=== PATIENT | male | born 1945 | race Caucasian/White ===

== ENCOUNTER 2022-10-27 08:54 | Inpatient (IN) ==
--- NOTE | 2022-10-22 15:25 | Anesthesiology Consultation ---
Date of Service October 22, 2022 Assessment & Plan (1) Encounter for pre-operative examination: Chart Review Chart Review: Acceptable Risk for Surgery and Patient NOT seen in Pre Admission Testing -COVID screening: Per PAT nursing assessment on 10/22/22. No known COVID-19 positive contacts or current COVID-19 related symptoms. Travel screen negative. Patient vaccinated for Covid. At surgeon discretion if preop Covid testing being done. History Surgery Operation Date: 10/27/22 10:20 Proposed Procedures p Transurethral Resection Prostate - Angel Wallace MD Height/Weight Height: 5 ft 8 in Weight: 65.771 kg Allergies Allergy/AdvReac Type Severity Reaction Status Date / Time No Known Drug Allergies Allergy Verified 10/22/22 13:47 Medications Home Medications Medication Instructions Recorded Confirmed Last Taken tamsulosin 0.4 mg capsule 0.4 mg PO QAM 09/07/22 10/22/22 Unknown losartan 25 mg tablet 25 mg PO BID 09/28/22 10/22/22 Unknown multivitamin 1 tab PO QAM 10/22/22 10/22/22 Unknown Past Medical History Medical History Acute kidney injury Secondary to obstructive uropathy per nephro records Anemia BPH (benign prostatic hyperplasia) CKD (chronic kidney disease) Hypertension Past Family History Family History Father Colorectal cancer Diabetes Past Surgical History Surgical History H/O oral surgery TOOTH EXTRACTIONS History of colonoscopy WITH POLYPECTOMY History of tonsillectomy Hx of appendectomy Hx of spinal surgery LUMBAR AREA, JUST TO RELIEVE PRESSURE, NOT A FUSION, VERY MINOR SURGERY Social History Smoking Status: Former smoker Do You Dip or Chew Tobacco: No Smoking End Date: OVER 10 YRS AGO Hx Alcohol Use: No Hx Substance Use: No substance use type: does not use Lab Results Anesthesia Preop Results Results Anesthesia Widget: WBC 6.53 K/ul (4.8-10.8) 10/07/22 Hgb 12.2 g/dl (14.0-18.0) L 10/07/22 Hct 36.8 % (40.1-51.0) L 10/07/22 Plt 195 K/uL (130-400) 10/07/22 Na 139 mmol/L (136-145) 10/07/22 K 5.1 mmol/L (3.5-5.1) 10/07/22 Cl 109 mmol/L (98-107) H 10/07/22 CO2 24 mmol/L (21-32) 10/07/22 BUN 38 mg/dl (6-23) H 10/07/22 Creat 1.95 mg/dl (0.6-1.4) H 10/07/22 Glucose Level 117 mg/dl (70-99(Fasting)) H 10/07/22 Urine Color Yellow 09/30/22 Urine Appearance Clear (Clear) 09/30/22 Urine pH 5.5 (4.5-7.5) 09/30/22 Urine Specific [place] 1.013 (1.000-1.030) 09/30/22 Urine Protein Trace (Negative) H 09/30/22 Urine Glucose (UA) Negative (Negative) 09/30/22 Urine Ketones Negative (Negative) 09/30/22 Urine Blood 3+ (Negative) H 09/30/22 Urine Nitrite Negative (Negative) 09/30/22 Urine Bilirubin Negative (Negative) 09/30/22 Urine Urobilinogen Negative (Negative) 09/30/22 Urine Leukocyte Esterase Trace (Negative) H 09/30/22 Urine WBC (Auto) 1-5 /hpf (0-5) 09/30/22 Urine RBC (Auto) >30 /hpf (0-4) H 09/30/22 Urine Hyaline Casts (Auto) 1-5 /lpf (0-5) 09/30/22 Urine Epithelial Cells (Auto) 0-5 /lpf (0-5) 09/30/22 Urine Bacteria (Auto) Negative (Negative) 09/30/22 Testing Laboratory Results Creatinine initially 2.9 with NEELAM- improved and staying around 2.0 per 10/13/22 nephro note 10/12/22= URINE CULTURE: More than 3 types of organisms present, all high counts mixed probable skin brian Electrocardiogram Date: 10/07/22 Sinus bradycardia at 55 bpm Otherwise normal EKG per cardio Chest X-Ray Date: 10/07/22 Emphysema. Otherwise no acute process within the chest.
[~2022-10-27 08:54] MED LIST: LACTATED RINGER'S 1,000 ML IV SCH; ceFAZolin 2000MG 2,000 MG/15 ML SYR IV SCH
[2022-10-27] MEDS ORDERED: ATROPINE SULFATE 0.1 MG/ML 10ML SYR IV PRN (09:55)
[2022-10-27] MEDS ORDERED: fentaNYL citrate 100 MCG/2 ML VIAL IV PRN (09:55)
[2022-10-27] MEDS ORDERED: ONDANSETRON INJ 2 MG/ML 2 ML VIAL IV PRN (09:55)
[2022-10-27] MEDS ORDERED: ePHEDrine sulfate 50 MG/ML AMP IV PRN (09:55)
--- NOTE | 2022-10-27 10:08 | History & Physical Bridge Note ---
Date of Service October 27, 2022 History & Physical Bridge Note I have examined the patient, reviewed the History & Physical and in the interval since the performance of the History & Physical I have noted the following changes of clinical significance: no changes noted
[2022-10-27] MEDS ORDERED: LIDOCAINE 2% MPF LOCAL 5 ML VIAL INFIL ONE (10:09)
[2022-10-27] MEDS ORDERED: ONDANSETRON INJ 2 MG/ML 2 ML VIAL ONE (10:09)
[2022-10-27] MEDS ORDERED: PROPOFOL IV EMULSION 10 MG/ML 20 ML VIAL IV ONE (10:09)
[2022-10-27] MEDS ORDERED: fentaNYL citrate 100 MCG/2 ML VIAL ONE ×2 (10:10→11:30)
[2022-10-27] MEDS ORDERED: ePHEDrine sulfate 50 MG/ML SYR ONE (11:19)
--- NOTE | 2022-10-27 11:51 | Operative Report ---
PG Post Operative Report Pre & Post Diagnosis Operation Date: 10/27/22 10:30 Pre-Op Diagnosis: Bladder Outlet Obstruction Post-Op Diagnosis: Bladder Outlet Obstruction I identified the patient and participated in the time-out.: Yes Procedure Operation Date: 10/27/22 10:30 Actual Procedures p Transurethral Resection of the Prostate - Angel Wallace MD Surgeon Angel Wallace MD Photocomposing Machine Operator None Estimated Blood Loss 10 Findings See Below Prostatic enlargement. Prostate was resected with bipolar loop and fulgurated with button. Specimens Prostate chips Drains 22 Indonesian three-way Winkler catheter per urethra, 30 mL in balloon. CBI running while transitioning to PACU. Anesthesia Type General Complications none Disposition Accompanied Patient To Recovery: Yes Disposition: Recovery Room Indications This is a 77-year-old male recently seen in the urology office for urinary retention. He presents to the OR today for transurethral resection of the prostate. Description of Procedure The patient was identified in the holding area and informed consent was confirmed. He was taken to the operating room where general anesthesia was initiated. He was placed in the dorsal lithotomy position with all pressure points appropriately padded. He was prepped and draped in the usual sterile fashion and a preoperative timeout was performed. A well-lubricated resectoscope was inserted per urethra and panendoscopy was performed. His pendulous urethra was normal with no strictures or mucosal abnormalities. The prostate was trilobar and enlarged with some intravesical protrusion. The bladder was significantly trabeculated with cellules. Toward the bladder dome there was a diverticulum. Ureteral orifices were in orthotopic position, well removed from the prostate. The prostate was systematically resected, starting with the median lobe, taking resection down until the capsular fibers could be identified. The proximal resection was up to the bladder neck, taking care not to injure the ureteral orifices. The distal resection extended to the verumontanum, taking care to avoid the sphincter. The lateral lobes were then resected down to the level of the capsule. Meticulous hemostasis was obtained using the button electrode. The prostate chips were evacuated from the bladder and sent for pathologic analysis. A final inspection demonstrated no injury to the ureteral orifices or the sphincter, no remaining prostate chips. Hemostasis was somewhat challenging to obtain, and I spent approximately 20 to 30 minutes using the button electrode fulgurating the prostate bed. Once there was good hemostasis, A 22 Fr 3-way winkler catheter was placed. I suspect the initial position of the catheter had the tip in the diverticulum as it did not irrigate easily. The catheter was repositioned with the tip in the lumen of the bladder, confirmed by easy flushing. The balloon was inflated with 30 mL of normal saline and the catheter was attached to gravity drainage with continuous irrigation running. The patient was then awakened from anesthesia and was brought to the PACU in stable condition. I attest to the content of the Intraoperative Record and any orders documented therein. Any exceptions are noted below.
[2022-10-27] MEDS ORDERED: BELLADONNA/OPIUM SUPP 60 MG SUPP PR PRN (12:04)
[2022-10-27] MEDS ORDERED: IBUPROFEN 200 MG TAB PO PRN (12:09)
--- NOTE | 2022-10-27 12:51 | Anesthesiology Progress Note ---
Date of Service October 27, 2022 Anesthesia Post Procedure Vital Signs Vital Signs: Temp Pulse Pulse Resp BP Pulse Ox O2 Del Method 10/27/22 12:30 97.3 F L 62 12 103/58 L 95 Nasal Cannula 10/27/22 12:20 63 12 107/56 L 94 Nasal Cannula 10/27/22 12:10 62 12 106/60 94 Nasal Cannula 10/27/22 12:00 74 13 117/67 96 Nasal Cannula 10/27/22 11:52 97.3 F L 80 20 118/73 98 Nasal Cannula 10/27/22 09:52 97.5 F L 68 18 148/88 H 96 Room Air O2 Flow Rate 10/27/22 12:30 2 10/27/22 12:20 2 10/27/22 12:10 2 10/27/22 12:00 2 10/27/22 11:52 2 10/27/22 09:52 Transfer of Care Handoff Completed per policy Notes Mental Status: alert / awake / arousable and participated in evaluation Patient Amnestic to Procedure: Yes Nausea / Vomiting: adequately controlled Pain: adequately controlled Airway Patency, RR, SpO2: stable & adequate BP & HR: stable & adequate Hydration State: stable & adequate Anesthetic Complications: no major complications apparent and Pt Satisfied with anesthetic care
[2022-10-27] MEDS: ACETAMINOPHEN 325 MG TAB PO PRN (16:53)
[2022-10-27] MEDS: SULFAMETHOXAZOLE/TRIMETHOPRIM DS 800/160MG TAB PO SCH (19:46)
[2022-10-27] MEDS: DOCUSATE SODIUM 100 MG CAP PO SCH (19:46)
[2022-10-27] MEDS: HEPARIN SOD 5,000 UNIT/0.5 ML VIAL SQ SCH (19:47)
[2022-10-28] MEDS: ACETAMINOPHEN 325 MG TAB PO PRN (00:02)
--- NOTE | 2022-10-28 08:45 | Urology Progress Note ---
Date of Service October 28, 2022 Assessment & Plan (1) Acute urinary retention: (2) BPH (benign prostatic hyperplasia): Plan Doing well s/p TURP on 10/27/2022. CBI was clamped this morning and he should be ready for discharge today. We will plan to leave the catheter in place for a nother 1 to 2 days prior to voiding trial. Admission and Anticipated Discharge Date Admission Date: October 27, 2022 Subjective Feeling well this morning, denies any pain No issues with catheter or CBI overnight Has been tolerating a diet, has not been ambulating just yet Physical Exam Physical Exam: Well-appearing, NAD Genitourinary: Grewal catheter in place with concentrated yellow urine on slow drip CBI. No bleeding at this point. Results & Data ([facility]) Vital Signs (Past 12 Hours) Vital Signs Temp Pulse Resp BP Pulse Ox O2 Del Method 10/28/22 07:17 36.7 C 63 17 145/80 H 94 Room Air 10/28/22 04:10 36.8 C 56 L 14 118/58 L 94 Room Air 10/27/22 22:53 36.8 C 60 14 124/72 92 Room Air PG Care Time/CCT Total # of Minutes Spent Total Time Spent with Patient: Total time spent is greater than 50% in coordination of care (as documented) at patient's floor/unit and/or counseling patient: Coding Level of Care Code None Diagnoses Acute urinary retention R33.8 BPH (benign prostatic hyperplasia) N40.0
--- NOTE | 2022-10-28 08:50 | Discharge Summary ---
Date of Service October 28, 2022 Admission HPI Per Admitting Provider This is a 77-year-old male with history of bladder outlet obstruction causing bilateral hydronephrosis. He presented to the OR on 10/27/2022 for TURP and was admitted postoperatively in good condition. Admission Exam Per Admitting Provider Constitutional well developed and well nourished; no acute distress Eyes + anicteric sclerae; pupils not irregular Respiratory normal respiratory effort; no respiratory distress, does not use accessory muscles and no cough Cardiovascular well perfused Gastrointestinal (Abdomen) Inspection/Auscultation: abdomen normal to inspection; abdomen not distended Musculoskeletal Extremities: extremities normal to inspection Skin normal turgor; no rashes and no lesions Neurologic moves all extremities and awake Psychiatric Orientation: alert and oriented x 3 Principal Diagnosis BPH, bladder outlet obstruction Discharge Exam Well-appearing, NAD Respiratory Breathing comfortably on room air, no audible wheezing Genitourinary Grewal catheter in place draining concentrated yellow urine on slow drip CBI Discharge Data Allergies Allergy/AdvReac Type Severity Reaction Status Date / Time No Known Drug Allergies Allergy Verified 10/27/22 09:50 Procedures Performed Operation Date: 10/27/22 10:30 Actual Procedures p Transurethral Resection of the Prostate - Angel Wallace MD Hospital Course (1) BPH (benign prostatic hyperplasia): He underwent TURP on 10/27/2022. He was maintained on continuous bladder irrigation overnight to make sure hematuria resolved. On 10/28 the urine was clear. He was discharged home with a catheter in place. Total Time Total Time Spent Total Time Spent (In Minutes): 15 Discharge Plan Discharge Items Patient Disposition: Home - Self-Care Discharge Diagnosis: Bladder outlet obstruction, urinary retention Activity: Per Instructions section Non-emergency contact: Urologist Call non-emergency contact if: your pain is not controlled and your temperature is above 101 Follow-up/Referrals: Ronnie Wolf MD [Primary Care Provider] - Diet: Regular Addtl Attending Provider Instructions: The surgery you had was TURP (Trans-urethral resection of the prostate) Please take all medications as prescribed and keep all follow-ups as scheduled. Please call our office at [phone] with any questions, concerns or need to reschedule appointments for any reason. We are happy to assist you. Medications: -Please resume your normal medications as previously prescribed. -Take a stool softener such as colace or Miralax to keep your stool soft. The goal is one soft bowel movement daily. -For pain, it is ok to take tylenol. You can also try pyridium (also known as AZO). This can be gotten [id number]. It turns your urine a bright orange color. -You have been prescribed an antibiotic (Bactrim). Please take this twice daily for the next 5 days. Activity: -Avoid straining or bearing down for the next 1-2 weeks. This can cause or increase bleeding. Avoiding straining to have bowel movements. -If you notice blood in your urine, try to remain well-hydrated to keep the urine dilute. -For the next 2 weeks, avoid activities that put pressure on your perineum (area behind the scrotum), such as riding a bike. What to expect after your procedure: -If a catheter was left in place, we will have you come to the office in the next couple days to remove it. -You may notice some blood in your urine. As long as your catheter is draining, this is ok. -You may have increased urinary frequency and urgency; this should improve with time. -You may notice some urinary leaking, especially with coughing/sneezing/bearing down. This should improve with time. When to call [facility] at [phone]: Fever of 101F or higher Heavy bleeding Pain that is not controlled with medicine Uncontrolled vomiting Problems urinating or inability to urinate Our office will call to schedule an appointment for catheter removal. Pending Studies at Discharge: No Stand-Alone Forms: [facility], Smoking Cessation Medications and DC Order Prescriptions: New sulfamethoxazole-trimethoprim [Bactrim DS] 800-160 mg tablet 1 tab PO BID 5 Days Qty: 10 0RF Continued tamsulosin 0.4 mg capsule 0.4 mg PO QAM losartan 25 mg tablet 25 mg PO BID multivitamin Tablet 1 tab PO QAM Discharge Orders: Discharge Order (Routine); Ordered 10/28/22 Ordered By: Angel Wallace Admission Data Admit Date/Time: 10/27/22 12:04 Attending Provider: Angel Wallace Admit Provider: Angel Wallace Primary Care Provider: Ronnie Wolf Coding Level of Care Code D/C DAY MANAGEMENT <30 MINS Diagnoses BPH (benign prostatic hyperplasia) N40.0
[2022-10-28] MEDS: HEPARIN SOD 5,000 UNIT/0.5 ML VIAL SQ SCH (08:59)
[2022-10-28] MEDS: DOCUSATE SODIUM 100 MG CAP PO SCH (08:59)
[2022-10-28] MEDS: SULFAMETHOXAZOLE/TRIMETHOPRIM DS 800/160MG TAB PO SCH (08:59)
[2022-10-28] MEDS ORDERED: LOSARTAN POTASSIUM 25 MG TAB PO SCH (09:00)
[2022-10-28] MEDS ORDERED: TAMSULOSIN HCL 0.4 MG CAP PO SCH (09:00)
== END 2022-10-28 13:46 | disposition home or self-care (01) | DRG 666 ==
LOC: ASU 08:54 → PACUINP 12:04 → 3N 15:11